=== PATIENT | male | born 1995 | race Caucasian/White ===

== ENCOUNTER 2018-07-13 10:37 | Inpatient (IN) | payer OTHER ==
[2018-07-13] MEDS: LEVOTHYROXINE 125 MCG TAB PO (15:32)
[2018-07-13] MEDS ORDERED: DOCUSATE SODIUM 100 MG CAP PO (19:00)
[2018-07-13] MEDS ORDERED: ACETAMINOPHEN 325 MG TAB PO (19:00)
[2018-07-13] MEDS ORDERED: ONDANSETRON 4 MG INJ IV (19:00)
[2018-07-13] MEDS ORDERED: MAGNESIUM HYDROXIDE 30ML CUP PO (19:00)
[2018-07-13] MEDS ORDERED: NACL 0.9% 3 ML SYG IV (19:00)
[2018-07-13] MEDS ORDERED: BISACODYL (EC) 5 MG TAB PO (19:00)
[2018-07-13] MEDS: SOD CHLORIDE 0.9% 1,000 ML IV (19:46)
[2018-07-13] MEDS: ACETAMINOPHEN 325 MG TAB PO (19:46)
[2018-07-14 05:07] LABS: ADD MAN DIFF? NO
[2018-07-14 05:18] LABS: BASOPHIL # 0.1 10^3/ul (0.0-0.1); BASOPHILS % 2.6 % (0.0-2.0); EOSINOPHILS # 0.2 10^3/ul (0.0-0.5); EOSINOPHILS % 4.3 % (0.0-7.0); HEMATOCRIT 40.7 % (42.0-52.0); HEMOGLOBIN 13.6 g/dl (14.0-18.0); LYMPHOCYTES # 1.8 10^3/ul (0.8-2.9); LYMPHOCYTES % 52.3 % (15.0-51.0); MEAN CORPUSCULAR HEMOGLOBIN 29.4 pg (29.0-33.0); MEAN CORPUSCULAR HGB CONC 33.4 g/dl (32.0-37.0); MEAN CORPUSCULAR VOLUME 88.1 fl (82.0-101.0); MEAN PLATELET VOLUME 12.3 fl (7.4-10.4); MONOCYTE # 0.2 10^3/ul (0.3-0.9); MONOCYTES % 5.1 % (0.0-11.0); NEUTROPHIL # 1.3 10^3/ul (1.6-7.5); NEUTROPHILS % 35.4 % (39.0-77.0); PLATELET COUNT 107 10^3/UL (140-415); RED BLOOD COUNT 4.62 10^6/ul (4.70-6.10); RED CELL DISTRIBUTION WIDTH 13.6 % (11.5-14.5)
[2018-07-14 05:18] LABS: WHITE BLOOD COUNT 3.5 10^3/ul (4.8-10.8)
[2018-07-14 05:23] LABS: HEMOGLOBIN A1C 5.8 % (0-5.9)
[2018-07-14] MEDS: LEVOTHYROXINE 137 MCG TAB PO (05:54)
== END 2018-07-14 15:50 | disposition home or self-care (01) | DRG 644 ==
LOC: E/R 10:37 → MS1 13:16
PROVIDERS: Internal Medicine Nephrology
DX: E03.9 Hypothyroidism, unspecified (principal); D61.818 Other pancytopenia; Z91.14 Patient's other noncompliance with medication regimen; R00.1 Bradycardia, unspecified; F12.10 Cannabis abuse, uncomplicated
CPT/HCPCS: 83036; 84443; 85025; 99285-25

== ENCOUNTER 2018-07-22 00:32 | Emergency (ER) | payer OTHER ==
[2018-07-22] MEDS: ACETAMINOPHEN 325 MG TAB PO (01:54)
[2018-07-22 01:57] LABS: ADD MAN DIFF? NO
[2018-07-22 02:00] LABS: BASOPHIL # 0.1 10^3/ul (0.0-0.1); BASOPHILS % 2.2 % (0.0-2.0); EOSINOPHILS # 0.1 10^3/ul (0.0-0.5); EOSINOPHILS % 2.7 % (0.0-7.0); HEMATOCRIT 36.2 % (42.0-52.0); HEMOGLOBIN 12.1 g/dl (14.0-18.0); LYMPHOCYTES # 1.1 10^3/ul (0.8-2.9); LYMPHOCYTES % 26.2 % (15.0-51.0); MEAN CORPUSCULAR HEMOGLOBIN 29.5 pg (29.0-33.0); MEAN CORPUSCULAR HGB CONC 33.4 g/dl (32.0-37.0); MEAN CORPUSCULAR VOLUME 88.3 fl (82.0-101.0); MEAN PLATELET VOLUME 12.1 fl (7.4-10.4); MONOCYTE # 0.2 10^3/ul (0.3-0.9); MONOCYTES % 5.1 % (0.0-11.0); NEUTROPHIL # 2.6 10^3/ul (1.6-7.5); NEUTROPHILS % 63.6 % (39.0-77.0); PLATELET COUNT 117 10^3/UL (140-415); RED CELL DISTRIBUTION WIDTH 13.7 % (11.5-14.5)
[2018-07-22 02:00] LABS: WHITE BLOOD COUNT 4.1 10^3/ul (4.8-10.8)
[2018-07-22 02:15] LABS: ALANINE AMINOTRANSFERASE 68 IU/L (13-69); ALBUMIN 4.5 g/dl (3.3-4.9); ALKALINE PHOSPHATASE 23 IU/L (42-121); ANION GAP 15 (8-16); ASPARTATE AMINO TRANSFERASE 37 IU/L (15-46); BILIRUBIN,INDIRECT 0.8 mg/dl (0-1.1); BILIRUBIN,TOTAL 0.8 mg/dl (0.2-1.3); BLOOD UREA NITROGEN 16 mg/dl (7-20); CALCIUM 9.5 mg/dl (8.4-10.2); CARBON DIOXIDE 24 mmol/L (21-31); CHLORIDE 105 mmol/L (97-110); CREATININE 0.98 mg/dl (0.61-1.24); GLUCOSE 133 mg/dl (70-220); POTASSIUM 3.7 mmol/L (3.5-5.1); SODIUM 140 mmol/L (135-144); TOTAL PROTEIN 7.7 g/dl (6.1-8.1)
[2018-07-22 02:32] LABS: FREE THYROXINE INDEX (Calc) 1.71 ug/ml (0.65-3.89); T3 UPTAKE 28.1 % (23.5-40.5); T4 (THYROXINE) 6.1 ug/dl (5.5-11.0)
== END 2018-07-22 03:24 | disposition home or self-care (01) ==
LOC: E/R 00:32
DX: R53.1 Weakness (principal); E03.9 Hypothyroidism, unspecified
CPT/HCPCS: 80053; 84436; 84443; 84479; 85025; 99283